=== PATIENT | female | born 1975 ===

== ENCOUNTER 2017-10-30 00:23 | Emergency (ER) | payer MEDICAID ==
[2017-10-30 00:23] VITALS: BMI 30.2
[2017-10-30 00:55] LABS: HCG,QUALITATIVE URINE NEGATIVE (NEGATIVE)
[2017-10-30 00:58] LABS: SQUAMOUS EPITHIAL 1 /hpf (0-5); URINE BILIRUBIN NEGATIVE (NEGATIVE); URINE BLOOD 1+ (NEGATIVE); URINE CLARITY Clear (Clear); URINE COLOR Yellow (YELLOW); URINE GLUCOSE (UA) NORMAL (Normal); URINE LEUKOCYTE ESTERASE NEG Leu/uL (Negative); URINE PROTEIN 1+ mg/dL (NEGATIVE); URINE UROBILINOGEN NORMAL mg/dL (0.2-1.0)
[2017-10-30] MEDS ORDERED: Sodium Chloride 0.9% 1,000 ML IV ONE (01:06)
[2017-10-30] MEDS ORDERED: Sodium Chloride 0.9% 1,000 ML ONE (01:16)
--- NOTE | 2017-10-30 01:31 | C.PDOC ---
History Of Present Illness 42 year old female presents to the ED complaining of suprapubic pressure pain associated with urinary frequency and left sided flank pain, onset 2 hours ago. Patient reports a history of UTIs and kidney stones. Time Seen by Provider: 10/30/17 00:46 Chief Complaint (Nursing): Abdominal Pain History Per: Patient History/Exam Limitations: no limitations Onset/Duration Of Symptoms: Hrs (x2) Current Symptoms Are (Timing): Still Present Quality Of Discomfort: Pressure Associated Symptoms: Urinary Symptoms (urinary frequency), Other (left sided flank pain) Alleviating Factors: None Past Medical History Reviewed: Historical Data, Nursing Documentation, Vital Signs Vital Signs: Last Vital Signs Temp 98.5 F 10/30/17 00:36 Pulse 83 10/30/17 00:36 Resp 18 10/30/17 00:36 BP 130/82 10/30/17 00:36 Pulse Ox 99 10/30/17 02:35 - Medical History PMH: Back Problems, Migraine, Chronic Pain Other PMH: UTIs, Nephrolithiasis Surgical History: No Surg Hx, Hernia Repair, - [facility] Procedures INJECT/INFUSE NEC (07/26/14) LAPAROSCOP LYSIS-ADHES OVA,FALLOP TUBE (09/08/14) LAPAROSCOPIC REPAIR UMBILICAL HERNIA W GRAFT OR PROSTHESIS (09/08/14) OTHER MUSCLE/FASC SUTURE (09/08/14) Family History: States: Unknown Family Hx - Social History Hx Tobacco Use: No Hx Alcohol Use: Yes Hx Substance Use: No - Immunization History Hx Tetanus Toxoid Vaccination: No Hx Influenza Vaccination: No Hx Pneumococcal Vaccination: No Review Of Systems Except As Marked, All Systems Reviewed And Found Negative. Gastrointestinal: Positive for: Abdominal Pain, Other (left sided flank pain ) Genitourinary: Positive for: Frequency Physical Exam - Physical Exam Appears: Non-toxic, Other (uncomfortable) Skin: Warm, Dry, No Diaphoretic, No Pale Head: Atraumatic, Normacephalic Eye(s): bilateral: Normal Inspection, EOMI Oral Mucosa: Moist Neck: Normal ROM Chest: Symmetrical Cardiovascular: Rhythm Regular, No Murmur Respiratory: Normal Breath Sounds, No Decreased Breath Sounds, No Rales, No Rhonchi, No Wheezing Gastrointestinal/Abdominal: Soft, Tenderness (suprapubic tenderness), No Distention, No Guarding, No Hernia Back: Normal Inspection, No CVA Tenderness, No Vertebral Tenderness, No Paraspinal Tenderness Extremity: Bilateral: Atraumatic, Normal ROM Neurological/Psych: Oriented x3, Normal Speech, Other (no focal deficits) Gait: Steady ED Course And Treatment - Laboratory Results Result Diagrams: 10/30/17 01:28 10/30/17 01:28 Lab Interpretation: Abnormal O2 Sat by Pulse Oximetry: 99 (RA) Pulse Ox Interpretation: Normal - CT Scan/US abd/pelvis Other Rad Studies (CT/US): Read By Radiologist, Radiology Report Reviewed CT/US Interpretation: EXAM: CT Abdomen and Pelvis Without Intravenous Contrast. EXAM DATE/TIME: 10/30/2017 1:06 AM. CLINICAL HISTORY: 42 years old , female; Pain; Abdominal pain; Patient HX: 04-16-16 images sent; Additional info : Left. flank pain. TECHNIQUE: Axial computed tomography images of the abdomen and pelvis without intravenous contrast. All CT. scans at this facility use one or more dose reduction techniques, viz.: automated exposure control;. ma/kV adjustment per patient size (including targeted exams where dose is matched to indication; i.e. head); or iterative reconstruction technique. Coronal and sagittal reformatted images were created and reviewed. COMPARISON: No relevant prior studies available. FINDINGS: The liver, spleen , gallbladder and pancreas appear grossly normal on this non-contrast study. There is mild left hydronephrosis and left hydroureter. There is a 4 x 2 mm calculi in the left UVJ. There are non obstructing left renal calculi. There is a faint 6 mm round hyperdensity in the left kidney. possible complex cysts. Followup recommended. [facility]. [facility]. Final Radiology Report [id number]. Name: CONSTANTINE AGUIRRE Age: 42Years F Date: 10/30/2017. SSN: [id number] : 1975. Study: CT ABDOMEN/PELVIS WO Requesting Physician: Veena Wheeler. Images: 624. Addl Studies: Provided Clinical History: left flank pain. CONFIDENTIALITY STATEMENT. This transmission is confidential and is intended to be a privileged communication. It is intended only for the use of the addressee. Access to this. message by anyone else is unauthorized. If you are not the intended recipient, any disclosure, copying, distribution or any action taken, or omitted to. be taken in reliance on it is prohibited and may be unlawful. If you received this communication in error, please notify us by telephone, so that return. of this document to us can be arranged. Page 2 of 2. Pelvic phleboliths are noted. The uterus appears grossly normal. The bowel appears grossly normal. A normal appendix is identified axial images 108 through 120. IMPRESSION: Obstructing calculi left UVJ. Thank you for allowing us to participate in the care of your patient. Dictated and Authenticated by: Stormy Sorto MD. 10/30/2017 3:10 AM Eastern Time ([place] & [place]) Medical Decision Making Medical Decision Making: impression: flank pain and suprapubic pain, likely renal stone vs UTI or pyelonephritis Initially the patient declined any medication and just wants urine checked for UTI. UA ordered and shows blood and RBCs, no nitrates, WBCs or LE. Explain UA does not show UTI and she needs further workup. She now accepts plan for labs and CT, IV meds; states does not want narcotics. Plan: 0100 -- CT Abd/Pelvis -- CMP -- CBC -- Sodium Chloride Progress: Labs reviewed CT pending 2:[address] shows there is mild left hydronephrosis and left hydroureter. There is a 4 x 2 mm calculi in the left UVJ. 0320 Patient reevaluated, she states pain has mildly improved. Discussed results with patient, and copy of CT report was provided. I advised her to follow up with urologist. Explained prognosis and plan for discharge with prescriptions for analgesics, antibiotic and flomax. Patient is agreeable with discharge. Instructed to return to ER if symptoms worsen or new symptoms arise. Disposition Counseled Patient/Family Regarding: Studies Performed, Diagnosis, Need For Followup, Rx Given - Disposition Referrals: Allan Thomas MD [Primary Care Provider] - John Rm MD [Staff Provider] - Disposition: HOME/ ROUTINE Disposition Time: 03:25 Condition: STABLE Additional Instructions: Your CT scan shows 4mm stone to left side. It is advised that you follow up with urologist. Drink fluids and take medications as follows: Cipro to prevent infection Flomax to help urinate and excrete stone Motrin for mild to moderate pain Tramadol for severe pain Return to the emergency department at any time if symptoms persist or worsen. Prescriptions: Ciprofloxacin [Cipro] 1 tab PO BID #14 tab Ibuprofen [Motrin] 600 mg PO Q8 #30 tab Tamsulosin [Flomax] 0.4 mg PO DAILY #10 cap traMADol [Ultram] 50 mg PO Q8 PRN #20 tab PRN Reason: Pain, Severe (8-10) Instructions: Kidney Stones (DC) Forms: Agent Partner ([place]) - POA Present On Arrival: None - Clinical Impression Clinical Impression: Kidney stone on left side - Scribe Statement Scribe Attestation: Documented by Beti Beltran, acting as a scribe for Veena DODSON. Provider Scribe Attestation: All medical record entries made by the Scribe were at my direction and personally dictated by me. I have reviewed the chart and agree that the record accurately reflects my personal performance of the history, physical exam, medical decision making, and the department course for this patient. I have also personally directed, reviewed, and agree with the discharge instructions and disposition.
[2017-10-30 01:34] LABS: HEMOGLOBIN 12.8 g/dL (11.0-16.0); MEAN CELL VOLUME 91.8 fL (81.0-99.0); MEAN CORPUSCULAR HGB CONC 33.7 g/dL (33.0-37.0); MEAN PLATELET VOLUME 8.1 fL (7.2-11.7); RBC 4.12 Mil/uL (3.80-5.20); WHITE BLOOD COUNT 12.7 K/uL (4.8-10.8)
[2017-10-30 02:06] LABS: ALB/GLOB RATIO 1.3 (1.0-2.1); ALBUMIN 4.2 g/dL (3.5-5.0); ALT/SGPT 22 U/L (9-52); AST/SGOT 23 U/L (14-36); BLOOD UREA NITROGEN 13 mg/dL (7-17); CALCIUM 9.4 mg/dl (8.6-10.4); GFR AFRICAN-AMERICAN > 60; GFR NON-AFRICAN AMERICAN > 60
--- NOTE | 2017-10-30 03:10 | CT ---
EXAM: CT Abdomen and Pelvis Without Intravenous Contrast EXAM DATE/TIME: 10/30/2017 1:06 AM CLINICAL HISTORY: 42 years old, female; Pain; Abdominal pain; Patient HX: 10-5-16 images sent; Additional info: Left flank pain TECHNIQUE: Axial computed tomography images of the abdomen and pelvis without intravenous contrast. All CT scans at this facility use one or more dose reduction techniques, viz.: automated exposure control; ma/kV adjustment per patient size (including targeted exams where dose is matched to indication; i.e. head); or iterative reconstruction technique. Coronal and sagittal reformatted images were created and reviewed. COMPARISON: No relevant prior studies available. FINDINGS: The liver, spleen, gallbladder and pancreas appear grossly normal on this non-contrast study. There is mild left hydronephrosis and left hydroureter. There is a 4 x 2 mm calculi in the left UVJ. There are non obstructing left renal calculi. There is a faint 6 mm round hyperdensity in the left kidney possible complex cysts. Followup recommended. Pelvic phleboliths are noted. The uterus appears grossly normal. The bowel appears grossly normal. A normal appendix is identified axial images 108 through 120. IMPRESSION: Obstructing calculi left UVJ.
[2017-10-30 04:02] VITALS: BP 129/70; PULSE 81; RESP 20; TEMP 97
[2017-10-30 05:30] VITALS: O2SAT 99
== END 2017-10-30 04:02 | disposition home or self-care (01) ==
LOC: C.ER 00:23 → SUPCPDRO 00:23 → C.ER 04:02
DX: N13.2 Hydronephrosis with renal and ureteral calculous obstruction (principal); Z87.442 Personal history of urinary calculi
CPT/HCPCS: 74176; 80053; 81001; 84703; 85027; 96361; 96374; 99285; J1885; J7040